=== PATIENT | male | born 1970 | race American Indian/Alaskan Native ===

== ENCOUNTER 2019-12-16 13:36 | Emergency (ER) | payer SELFPAY ==
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
[2019-12-16 17:35] VITALS: BP 138/85
== END 2019-12-16 17:35 | disposition home or self-care (01) ==
LOC: ED 13:36
DX: S13.4XXA Sprain of ligaments of cervical spine, initial encounter (principal); Z79.899 Other long term (current) drug therapy; V49.59XA Passenger injured in collision with other motor vehicles in traffic accident, initial encounter; Y93.89 Activity, other specified; Y92.410 Unspecified street and highway as the place of occurrence of the external cause; Y99.8 Other external cause status
CPT/HCPCS: 72040; 72125

== ENCOUNTER 2021-08-09 16:41 | Emergency (ER) | payer MEDICAID, OTHER ==
[2021-08-09 18:16] VITALS: BP 126/84
== END 2021-08-10 08:11 | disposition left against medical advice (07) ==
LOC: ED 16:41
DX: T16.2XXA Foreign body in left ear, initial encounter (principal); Z53.21 Procedure and treatment not carried out due to patient leaving prior to being seen by health care provider; X58.XXXA Exposure to other specified factors, initial encounter; Y93.89 Activity, other specified; Y92.89 Other specified places as the place of occurrence of the external cause

== ENCOUNTER 2021-08-12 07:31 | Emergency (ER) | payer MEDICAID ==
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
[2021-08-12 10:24] VITALS: BP 138/75
== END 2021-08-12 10:23 | disposition home or self-care (01) ==
LOC: ED 07:31
DX: T16.2XXA Foreign body in left ear, initial encounter (principal); X58.XXXA Exposure to other specified factors, initial encounter; Y93.89 Activity, other specified; Y92.89 Other specified places as the place of occurrence of the external cause; Y99.8 Other external cause status
CPT/HCPCS: 99282